=== PATIENT | male | born 1970 | race African-American/Black ===

== ENCOUNTER 2022-05-27 05:10 | Emergency (ER) | payer SELFPAY ==
[~2022-05-27] VITALS: Ht 190.5 cm; Wt 136.4 kg
[2022-05-27] MEDS ORDERED: IBUP800T27 PO (07:30)
[2022-05-27] MEDS ORDERED: CYCL-837 PO (07:30)
[2022-05-27] MEDS ORDERED: KETOROLAC TROMETH 60MG/2ML VIAL IM ONE (07:30)
[2022-05-27 07:42] VITALS: BP 131/86
== END 2022-05-27 08:21 | disposition home or self-care (01) ==
LOC: ER 05:10
DX: S39.012A Strain of muscle, fascia and tendon of lower back, initial encounter (principal); X50.1XXA Overexertion from prolonged static or awkward postures, initial encounter; Y93.89 Activity, other specified; Y92.89 Other specified places as the place of occurrence of the external cause; Y99.8 Other external cause status
CPT/HCPCS: 96372; 99283; J1885